=== PATIENT | female | born 1940 | race Caucasian/White ===

== ENCOUNTER → 2018-08-15 | Outpatient (CLI) | payer MEDICARE ==
--- NOTE | 2018-08-15 16:25 | Diagnostic Imaging Report ---
ADDENDUM #1 Addendum: Prevoid urinary bladder volume: 159 cc Postvoid volume: 17 cc Signed by: Dr. Ben Austin M.D. on 08/20/2018 10:56 AM ORIGINAL REPORT EXAMINATION: Renal ultrasound. CLINICAL HISTORY :Chronic kidney disease stage III COMPARISON: <None available.> TECHNIQUE: Grayscale and color Doppler evaluation of the kidneys and bladder was performed in transverse and longitudinal planes. DISCUSSION: RIGHT KIDNEY: The right kidney measures 11.6 cm in length and shows normal echogenicity. No hydronephrosis, mass lesion, or calculus. LEFT KIDNEY: The left kidney measures 10.9 cm in length and shows normal echogenicity. No hydronephrosis, shadowing calculi or solid mass lesions.There is an exophytic simple cyst projecting from the lateral aspect of the left kidney measuring 6.2 x 5.7 x 6.8 cm. There is an additional cystic lesion with a punctate hyperechoic area within the cyst. The cyst itself measures 1.8 x 1.4 x 1.7 cm. BLADDER: Unremarkable. Right and left ureteral jets are identified. IMPRESSION: Left renal cysts as described. The smaller cyst is minimally complex and may be followed by repeat renal ultrasound in 6-12 months. Alternatively, renal mass protocol CT or MRI may be performed. Otherwise unremarkable sonographic appearance of the kidneys. Signed by: Dr. Ben Austin M.D. on 08/15/2018 4:22 PM
== END ==
LOC: US 14:21
PROVIDERS: ATTEND Internal Medicine Nephrology
DX: N18.3 Chronic kidney disease, stage 3 (moderate) (principal)
CPT/HCPCS: 76770; 76857

== ENCOUNTER → 2022-12-01 | Outpatient (CLI) | payer MEDICARE | LOC: MRI 09:59 | PROVIDERS: ATTEND Psychiatry & Neurology Neurology | DX: F03.90 Unspecified dementia, unspecified severity, without behavioral disturbance, psychotic disturbance, mood disturbance, and anxiety (principal) | CPT/HCPCS: 70551 ==

== ENCOUNTER 2023-07-06 10:03 | Outpatient (RCR) | payer MEDICARE ==
[~2023-07-06 10:03] MED LIST: COLLAGENASE OINTMENT 30 GM TUBE ONE; LIDOCAINE VISC 2% SOLN 15 ML UDC ONE; LIDOCAINE/PRILOCAINE 2.5-2.5% KIT ONE; TRIAMCINOLONE ACET 0.1% CREAM 15 GM TUBE ONE
[2023-07-06] MEDS ORDERED: LIDOCAINE/PRILOCAINE 2.5-2.5% KIT ONE (13:52)
== END 2023-07-10 ==
LOC: WCC 10:03
PROVIDERS: ATTEND Internal Medicine Infectious Disease
DX: T81.89XA Other complications of procedures, not elsewhere classified, initial encounter (principal); I87.332 Chronic venous hypertension (idiopathic) with ulcer and inflammation of left lower extremity; I87.331 Chronic venous hypertension (idiopathic) with ulcer and inflammation of right lower extremity; L97.821 Non-pressure chronic ulcer of other part of left lower leg limited to breakdown of skin; L97.811 Non-pressure chronic ulcer of other part of right lower leg limited to breakdown of skin; R60.0 Localized edema

== ENCOUNTER 2023-07-20 11:08 | Outpatient (RCR) | payer MEDICARE ==
[~2023-07-20 11:08] MED LIST changes: -COLLAGENASE OINTMENT 30 GM TUBE ONE; -TRIAMCINOLONE ACET 0.1% CREAM 15 GM TUBE ONE
[2023-07-20] MEDS ORDERED: LIDOCAINE/PRILOCAINE 2.5-2.5% KIT ONE (13:31)
[2023-07-20] MEDS ORDERED: COLLAGENASE OINTMENT 30 GM TUBE ONE (13:31)
== END 2023-08-09 ==
LOC: WCC 11:08
PROVIDERS: ATTEND Internal Medicine Infectious Disease
DX: T81.89XA Other complications of procedures, not elsewhere classified, initial encounter (principal); I87.331 Chronic venous hypertension (idiopathic) with ulcer and inflammation of right lower extremity; L97.811 Non-pressure chronic ulcer of other part of right lower leg limited to breakdown of skin; R60.0 Localized edema